=== PATIENT | female | born 1965 | race Caucasian/White ===

== ENCOUNTER 2019-10-08 11:52 | Emergency (ER) | payer OTHER, SELFPAY ==
[2019-10-08 11:59] VITALS: BP 138/82; PULSE 70; RESP 18; TEMP 37.2; O2SAT 98
--- NOTE | 2019-10-08 12:07 | ED.GENADUL_ITS ---
Discharge Plan Disposition Patient Disposition: HOME Condition: Stable Discharge Details Chief Complaint: Orthopedic Clinical Impression: Strain of foot, left Primary Care Provider: Tish Ashby ED Provider: Octavio New Home Meds and New Rx's Prescriptions: Continued ibuprofen 200 mg Tablet 400 mg PO PRN PRNRF: 0 hydrochlorothiazide 50 mg Tablet 50 mg PO DAILY RF: 0 lisinopril 5 mg Tablet 5 mg PO DAILY RF: 0 Biofreeze (menthol) 4 % Gel See Rx Instructions .ROUTE .COMPLEX RF: 0 Discharge Instructions Instructions: Foot Sprain (ED) Additional Instructions: Crutches and nonweightbearing with use of walking boot as we discussed over 5 to 7 days time, then wean to weightbearing in walking boot and finally wean to normal shoe. Elevate and apply ice to reduce pain and comfort. Please see enclosed work note. Tylenol and/or ibuprofen as needed for pain. Return to see regular doctor if not improving in 7 to 10 days time. Stand Alone Forms: Work Release Medical Decision Making 54-year-old female with left midfoot pain after stepping off the pavement and feeling a pop. States she has had antecedent discomfort for 2 weeks. She is afebrile and well-appearing the pain is located in the midfoot. X-ray without acute finding. Will place in walking boot with crutches, with plan for weaning from crutches in the walking boot over 7 to 10 days time. Patient understands need for repeat evaluation if pain persist beyond 1 week. She is stable and appropriate for discharge at this time. HPI General Mode of arrival: wheelchair . Date/Time Provider Initiated Documentation: 10/08/19 12:00 . Limitations to Documentation: no limitations . Information obtained by: patient . History of Present Illness 54 year old F presents to the emergency department with the chief complaint of Left foot pain after feeling a pop, described as moderate, Quality is described as dull and constant, and is localized to the left and lower extremity. Patient reports no radiation. Patient started experiencing this hour(s) and it has been constant. No relieving factors improve symptom(s), and Rest improves symptom(s), Other factors that worsen symptoms (Weightbearing) . Patient notes no other symptoms.. Patient did receive the following treatments prior to arrival, none Related Data Home Medications Medication Instructions Recorded Confirmed Biofreeze (menthol) See Rx Instructions .ROUTE .COMPLEX 10/08/19 10/08/19 hydrochlorothiazide 50 mg PO DAILY 10/08/19 10/08/19 ibuprofen 400 mg PO PRN PRN 10/08/19 10/08/19 lisinopril 5 mg PO DAILY 10/08/19 10/08/19 Allergies Allergy/AdvReac Type Severity Reaction Status Date / Time amoxicillin AdvReac Skin Rash Unverified 10/08/19 12:02 General Stated Complaint: Orthopedic ANTHONY: 4 Review of Systems Narrative: No other injury. No numbness or tingling. 4 systems reviewed and otherwise negative PFSH Social History Smoking/Tobacco Use Status: Never Alcohol Intake: current Alcohol Intake frequency: holidays/special occasions only Drug use: Never Substance use type: does not use Do you feel safe at home: Yes Do you feel safe in your relationship?: Yes Exam Narrative Exam Narrative: GEN: awake, alert, oriented 3. Pleasant, well groomed, interactive. HEAD: Normocephalic, atraumatic ENT: Mucous membranes moist, oropharynx unremarkable, External ear exam unremarkable EYES: PERRL, EOMI EXT: Full ROM, left midfoot with diffuse tenderness, trace swelling, 2+ DP bilaterally. Motor is intact and sensation normal throughout. Neuro: Grossly normal neurologic exam, conversant, interactive. Psych: Speech fluent, thoughts congruent, affect normal Course Vital Signs Vital signs: Vital Signs Temperature 37.2 C 10/08/19 11:59 Pulse 70 10/08/19 11:59 Respiratory Rate 18 10/08/19 11:59 Blood Pressure 138/82 10/08/19 11:59 Pulse Oximetry 98 10/08/19 11:59 Temperature 37.2 C 10/08/19 11:59 Temperature Source Skin 10/08/19 11:59 Pulse 70 10/08/19 11:59 Respiratory Rate 18 10/08/19 11:59 Blood Pressure 138/82 10/08/19 11:59 Blood Pressure Position Sitting 10/08/19 11:59 Pulse Oximetry 98 10/08/19 11:59 Oxygen Delivery Method Room Air 10/08/19 11:59 Oxygen Flow Rate 0 10/08/19 11:59 Pain Level 10 10/08/19 11:59 Comment 10/08/19 11:59
--- NOTE | 2019-10-08 12:20 | DI.RAD_ITS ---
EXAM: XR FOOT LT COMPLETE CLINICAL HISTORY: MID FOOT PAIN AFTER POP COMPARISON: No exams were available for comparison FINDINGS: Three views of the foot were obtained. No bony or soft tissue abnormality seen.
[2019-10-08 13:16] VITALS: BP 122/76; PULSE 78; RESP 18; TEMP 36.9; O2SAT 99
== END 2019-10-08 13:21 | disposition home or self-care (01) ==
LOC: ER 13:28
PROVIDERS: Emergency Provider Emergency Medicine; PCP Nurse Practitioner Family
DX: S96.912A Strain of unspecified muscle and tendon at ankle and foot level, left foot, initial encounter (principal); X50.9XXA Other and unspecified overexertion or strenuous movements or postures, initial encounter
CPT/HCPCS: 29515; 99283; 73630; E0114; L4361

== ENCOUNTER 2019-12-31 02:34 | Outpatient (CLI) | payer OTHER, SELFPAY ==
--- NOTE | 2019-12-31 11:05 | DI.CT_ITS ---
EXAM: CT LOWER EXTREMITY LT WO CLINICAL HISTORY: PAIN AFTER STEPPING OFF STAIRS PAIN 1ST MET CUNEIFORM JOINT TECHNIQUE: Noncontrast COMPARISON: XR FOOT LT COMPLETE from 10/08/2019 FINDINGS: There is a bipartite medial sesamoid. There is a question of a nondisplaced fracture extending in t he sagittal plane through the more proximal medial sesamoid versus vascular groove. The sesamoids ap pear normally positioned. There is no significant degenerative change at the sesamoid 1st metatarsal head. There are minimal degenerative changes in the intertarsal region. IMPRESSION: Question of a nondisplaced fracture through the more proximal medial sesamoid.
== END 2019-12-31 02:54 ==
PROVIDERS: PCP Nurse Practitioner Family; Visit Provider Podiatrist
DX: S99.922D Unspecified injury of left foot, subsequent encounter (principal)
CPT/HCPCS: 73700